=== PATIENT | male | born 1955 | race African-American/Black ===

== ENCOUNTER 2022-02-04 14:34 | Inpatient (IN) | payer OTHER ==
[2022-02-04 16:10] VITALS: BMI 22.1
[2022-02-04] MEDS ORDERED: BISMUTH SUBSALICYLATE 524 MG/30 ML PO PRN (18:12)
[2022-02-04] MEDS ORDERED: NICOTINE 10 MG CARTRIDGE (INHALER) IH PRN (18:12)
[2022-02-04] MEDS ORDERED: MAGNESIUM CITRATE 300 ML BOTTLE PO PRN (18:12)
[2022-02-04] MEDS ORDERED: LOPERAMIDE HCL 2 MG CAPSULE PO PRN (18:12)
[2022-02-04] MEDS ORDERED: MAGNESIUM HYDROX 2400MG/30ML ORAL SUSPENSION 30 ML CUP PO PRN (18:12)
[2022-02-04] MEDS ORDERED: NALOXONE HCL (KLOXXADO) 8 MG SPRAY NS PRN (18:12)
[2022-02-04] MEDS ORDERED: ONDANSETRON *ODT* 4 MG TABLET SL PRN (18:12)
[2022-02-04] MEDS ORDERED: METHOCARBAMOL 500 MG TABLET PO PRN (18:12)
[2022-02-04] MEDS ORDERED: MAG HYDROX/AL HYDROX/SIMETH 30 ML UNIT-DOSE CUP PO PRN (18:12)
[2022-02-04] MEDS ORDERED: IBUPROFEN 400 MG TABLET (FP) PO PRN (18:12)
[2022-02-04] MEDS ORDERED: BENZOCAINE/MENTHOL (CHLORASEPTIC ) LOZENGE MM PRN (18:12)
[2022-02-04] MEDS ORDERED: DICYCLOMINE HCL 10 MG CAPSULE PO PRN (18:12)
[2022-02-04] MEDS ORDERED: ACETAMINOPHEN 325 MG TABLET (FP) PO PRN ×2 (18:12)
[2022-02-04] MEDS: PRENATAL VITAMINS W/ FOLIC ACID TABLET (FP) PO SCH (19:36)
[2022-02-04] MEDS: HYDROCHLOROTHIAZIDE 25 MG TABLET (FP) PO SCH (19:36)
[2022-02-04] MEDS: MELATONIN 5 MG TABLETS PO SCH (22:04)
[2022-02-04] MEDS: THIAMINE HCL 100 MG TABLET (FP) PO SCH (22:04)
[2022-02-04] MEDS: NIFEdipine E.R. 90 MG TABLET PO SCH (22:04)
[2022-02-04] MEDS: AMITRIPTYLINE HCL 25 MG TABLET PO SCH (22:05)
[2022-02-04] MEDS: hydrOXYzine PAMOATE 25 MG CAPSULE (FP) PO SCH (22:05)
[2022-02-04] MEDS: diazePAM 5 MG TABLET PO SCH (22:07)
[2022-02-05] MEDS: hydrOXYzine PAMOATE 25 MG CAPSULE (FP) PO SCH ×5 (05:45→22:48)
[2022-02-05] MEDS: diazePAM 5 MG TABLET PO SCH ×2 (05:45→10:32)
[2022-02-05] MEDS: NIFEdipine E.R. 90 MG TABLET PO SCH (10:32)
[2022-02-05] MEDS: PRENATAL VITAMINS W/ FOLIC ACID TABLET (FP) PO SCH (10:32)
[2022-02-05] MEDS: HYDROCHLOROTHIAZIDE 25 MG TABLET (FP) PO SCH (10:32)
[2022-02-05 12:40] LABS: HEMATOCRIT 35.5 % (35.4-49); HEMOGLOBIN 11.4 GM/dL (11.7-16.9); MCH 30.9 pg (25.7-33.7); MCHC 32.1 g/dl (32.0-35.9); MEAN CELL VOLUME 96.3 fl (80-96); MEAN PLT VOLUME 8.9 fl (7.5-11.1); PLATELET COUNT 156 10^3/uL (134-434); RBC 3.69 M/mm3 (4.00-5.60); RDW 13.3 % (11.9-15.9); WHITE BLOOD COUNT 3.8 K/mm3 (4.0-10.0)
[2022-02-05 13:10] LABS: ALBUMIN 3.2 g/dl (3.4-5.0); BLOOD UREA NITROGEN 42.1 mg/dL (7-18); CALCIUM 8.9 mg/dL (8.5-10.1)
[2022-02-05 13:13] LABS: BILIRUBIN,TOTAL 0.4 mg/dL (0.2-1); CREATININE 1.5 mg/dL (0.55-1.3); TOT PROT 6.5 g/dl (6.4-8.2)
[2022-02-05] MEDS ORDERED: LORazepam 0.5 MG TABLET PO PRN (15:37)
[2022-02-05] MEDS: LORazepam 0.5 MG TABLET PO SCH ×2 (17:34→22:45)
[2022-02-05] MEDS: AMITRIPTYLINE HCL 25 MG TABLET PO SCH (22:45)
[2022-02-05] MEDS: THIAMINE HCL 100 MG TABLET (FP) PO SCH (22:45)
[2022-02-05] MEDS: MELATONIN 5 MG TABLETS PO SCH (22:47)
[2022-02-06] MEDS: hydrOXYzine PAMOATE 25 MG CAPSULE (FP) PO SCH (05:49)
[2022-02-06] MEDS: LORazepam 0.5 MG TABLET PO SCH ×3 (05:49→22:18)
[2022-02-06] MEDS ORDERED: diazePAM 5 MG TABLET PO SCH (06:00)
[2022-02-06 10:05] LABS: BLOOD UREA NITROGEN 30.1 mg/dL (7-18); CREATININE 1.1 mg/dL (0.55-1.3)
[2022-02-06] MEDS: HYDROCHLOROTHIAZIDE 25 MG TABLET (FP) PO SCH (10:21)
[2022-02-06] MEDS: NIFEdipine E.R. 90 MG TABLET PO SCH (10:21)
[2022-02-06] MEDS: PRENATAL VITAMINS W/ FOLIC ACID TABLET (FP) PO SCH (10:21)
[2022-02-06] MEDS: IBUPROFEN 600 MG TABLET (FP) PO PRN ×2 (10:41→22:19)
[2022-02-06] MEDS: THIAMINE HCL 100 MG TABLET (FP) PO SCH (22:17)
[2022-02-06] MEDS: AMITRIPTYLINE HCL 25 MG TABLET PO SCH (22:18)
[2022-02-06] MEDS: MELATONIN 5 MG TABLETS PO SCH (22:18)
[2022-02-07] MEDS: LORazepam 0.5 MG TABLET PO SCH ×2 (05:36→18:11)
[2022-02-07] MEDS ORDERED: diazePAM 5 MG TABLET PO SCH (06:00)
[2022-02-07] MEDS: PRENATAL VITAMINS W/ FOLIC ACID TABLET (FP) PO SCH (10:09)
[2022-02-07] MEDS: HYDROCHLOROTHIAZIDE 25 MG TABLET (FP) PO SCH (10:09)
[2022-02-07] MEDS: NIFEdipine E.R. 90 MG TABLET PO SCH (10:09)
[2022-02-07] MEDS: IBUPROFEN 600 MG TABLET (FP) PO PRN ×2 (10:09→18:12)
[2022-02-07 14:33] VITALS: RESP 18
[2022-02-07] MEDS: THIAMINE HCL 100 MG TABLET (FP) PO SCH (22:11)
[2022-02-07] MEDS: AMITRIPTYLINE HCL 25 MG TABLET PO SCH (22:11)
[2022-02-07] MEDS: MELATONIN 5 MG TABLETS PO SCH (22:12)
[2022-02-08] MEDS ORDERED: LORazepam 0.5 MG TABLET PO ONE (06:00)
[2022-02-08] MEDS ORDERED: diazePAM 5 MG TABLET PO ONE (06:00)
[2022-02-08] MEDS: PRENATAL VITAMINS W/ FOLIC ACID TABLET (FP) PO SCH (10:28)
[2022-02-08] MEDS: NIFEdipine E.R. 90 MG TABLET PO SCH (10:29)
[2022-02-08] MEDS: HYDROCHLOROTHIAZIDE 25 MG TABLET (FP) PO SCH (10:29)
[2022-02-08] MEDS: IBUPROFEN 600 MG TABLET (FP) PO PRN (10:29)
[2022-02-08 13:32] VITALS: BP 138/89; PULSE 78; TEMP 97.3
== END 2022-02-08 14:15 | disposition other institution (70) | DRG 897 ==
LOC: YASAS 14:34 → SUATTDRO 14:34 → Y6N 18:31
PROVIDERS: ADMIT Allergy & Immunology; ATTEND Surgery
PROC: HZ2ZZZZ Detoxification Services for Substance Abuse Treatment (ICD-10-PCS; principal; 2022-02-04)
DX: F10.230 Alcohol dependence with withdrawal, uncomplicated (principal); F14.20 Cocaine dependence, uncomplicated; F17.210 Nicotine dependence, cigarettes, uncomplicated; F32.A Depression, unspecified; E78.5 Hyperlipidemia, unspecified; I10 Essential (primary) hypertension; J44.9 Chronic obstructive pulmonary disease, unspecified; K21.9 Gastro-esophageal reflux disease without esophagitis; Z88.8 Allergy status to other drugs, medicaments and biological substances
CPT/HCPCS: 36415; 80053; 82565; 82962; 84450; 84520; 85027; 86780; 87811; C9803-CS; U0003; U0005

== ENCOUNTER 2022-02-08 14:25 | Inpatient (IN) | payer OTHER ==
[2022-02-08] MEDS ORDERED: NICOTINE 7 MG/24 HOURS TOPICAL PATCH TD PRN (14:51)
[2022-02-08] MEDS ORDERED: LOPERAMIDE HCL 2 MG CAPSULE PO PRN (14:51)
[2022-02-08] MEDS ORDERED: ACETAMINOPHEN 325 MG TABLET (FP) PO PRN (14:51)
[2022-02-08] MEDS ORDERED: NICOTINE POLACRILEX 2 MG GUM BC PRN (14:51)
[2022-02-08] MEDS ORDERED: MAGNESIUM HYDROX 2400MG/30ML ORAL SUSPENSION 30 ML CUP PO PRN (14:51)
[2022-02-08] MEDS ORDERED: MAGNESIUM CITRATE 300 ML BOTTLE PO PRN (14:51)
[2022-02-08] MEDS ORDERED: guaiFENesin 200 MG/10 ML 10 ML UNIT-DOSE CUPS PO PRN (14:51)
[2022-02-08] MEDS ORDERED: NICOTINE 10 MG CARTRIDGE (INHALER) IH PRN (14:51)
[2022-02-08] MEDS ORDERED: MAG HYDROX/AL HYDROX/SIMETH 30 ML UNIT-DOSE CUP PO PRN (14:51)
[2022-02-08] MEDS: IBUPROFEN 400 MG TABLET (FP) PO PRN (18:42)
[2022-02-08] MEDS: THIAMINE HCL 100 MG TABLET (FP) PO SCH (21:09)
[2022-02-08] MEDS: AMITRIPTYLINE HCL 25 MG TABLET PO SCH (21:09)
[2022-02-08] MEDS ORDERED: MELATONIN 5 MG TABLETS PO SCH (22:00)
[2022-02-09] MEDS: PRENATAL VITAMINS W/ FOLIC ACID TABLET (FP) PO SCH (10:09)
[2022-02-09] MEDS: NIFEdipine E.R. 90 MG TABLET PO SCH (10:09)
[2022-02-09] MEDS: HYDROCHLOROTHIAZIDE 25 MG TABLET (FP) PO SCH (10:09)
[2022-02-09] MEDS: IBUPROFEN 400 MG TABLET (FP) PO PRN ×2 (10:11→21:54)
[2022-02-09] MEDS: AMITRIPTYLINE HCL 25 MG TABLET PO SCH (21:52)
[2022-02-09] MEDS: THIAMINE HCL 100 MG TABLET (FP) PO SCH (21:53)
[2022-02-10] MEDS: HYDROCHLOROTHIAZIDE 25 MG TABLET (FP) PO SCH (09:42)
[2022-02-10] MEDS: NIFEdipine E.R. 90 MG TABLET PO SCH (09:42)
[2022-02-10] MEDS: PRENATAL VITAMINS W/ FOLIC ACID TABLET (FP) PO SCH (09:42)
[2022-02-10] MEDS: THIAMINE HCL 100 MG TABLET (FP) PO SCH (21:38)
[2022-02-10] MEDS: AMITRIPTYLINE HCL 25 MG TABLET PO SCH (21:38)
[2022-02-10] MEDS: MELATONIN 5 MG TABLETS PO PRN (23:01)
[2022-02-11] MEDS: IBUPROFEN 400 MG TABLET (FP) PO PRN (09:13)
[2022-02-11] MEDS: NIFEdipine E.R. 90 MG TABLET PO SCH (09:14)
[2022-02-11] MEDS: HYDROCHLOROTHIAZIDE 25 MG TABLET (FP) PO SCH (09:14)
[2022-02-11] MEDS: PRENATAL VITAMINS W/ FOLIC ACID TABLET (FP) PO SCH (09:14)
[2022-02-11] MEDS: MELATONIN 5 MG TABLETS PO PRN (21:06)
[2022-02-11] MEDS: AMITRIPTYLINE HCL 25 MG TABLET PO SCH (21:06)
[2022-02-11] MEDS: THIAMINE HCL 100 MG TABLET (FP) PO SCH (21:06)
[2022-02-12] MEDS: HYDROCHLOROTHIAZIDE 25 MG TABLET (FP) PO SCH (09:57)
[2022-02-12] MEDS: NIFEdipine E.R. 90 MG TABLET PO SCH (09:57)
[2022-02-12] MEDS: PRENATAL VITAMINS W/ FOLIC ACID TABLET (FP) PO SCH (09:57)
[2022-02-12] MEDS: IBUPROFEN 400 MG TABLET (FP) PO PRN (15:50)
[2022-02-12 17:11] LABS: HIV INTERPRETATION NEGATIVE (NEGATIVE)
[2022-02-12] MEDS: AMITRIPTYLINE HCL 25 MG TABLET PO SCH (21:16)
[2022-02-12] MEDS: THIAMINE HCL 100 MG TABLET (FP) PO SCH (21:16)
[2022-02-12] MEDS: MELATONIN 5 MG TABLETS PO PRN (21:16)
[2022-02-13] MEDS: NIFEdipine E.R. 90 MG TABLET PO SCH (10:38)
[2022-02-13] MEDS: PRENATAL VITAMINS W/ FOLIC ACID TABLET (FP) PO SCH (10:38)
[2022-02-13] MEDS: HYDROCHLOROTHIAZIDE 25 MG TABLET (FP) PO SCH (10:38)
[2022-02-13] MEDS: MELATONIN 5 MG TABLETS PO PRN (21:03)
[2022-02-13] MEDS: AMITRIPTYLINE HCL 25 MG TABLET PO SCH (21:03)
[2022-02-13] MEDS: THIAMINE HCL 100 MG TABLET (FP) PO SCH (21:03)
[2022-02-14] MEDS: PRENATAL VITAMINS W/ FOLIC ACID TABLET (FP) PO SCH (10:40)
[2022-02-14] MEDS: HYDROCHLOROTHIAZIDE 25 MG TABLET (FP) PO SCH (10:41)
[2022-02-14] MEDS: NIFEdipine E.R. 90 MG TABLET PO SCH (10:41)
[2022-02-14] MEDS: MELATONIN 5 MG TABLETS PO PRN (21:37)
[2022-02-14] MEDS: THIAMINE HCL 100 MG TABLET (FP) PO SCH (21:37)
[2022-02-14] MEDS: AMITRIPTYLINE HCL 25 MG TABLET PO SCH (23:53)
[2022-02-15] MEDS: IBUPROFEN 400 MG TABLET (FP) PO PRN (10:23)
[2022-02-15] MEDS: PRENATAL VITAMINS W/ FOLIC ACID TABLET (FP) PO SCH (10:24)
[2022-02-15] MEDS: HYDROCHLOROTHIAZIDE 25 MG TABLET (FP) PO SCH (10:24)
[2022-02-15] MEDS: NIFEdipine E.R. 90 MG TABLET PO SCH (10:24)
[2022-02-15] MEDS: MELATONIN 5 MG TABLETS PO PRN (21:07)
[2022-02-15] MEDS: hydrOXYzine PAMOATE 25 MG CAPSULE (FP) PO PRN (21:07)
[2022-02-15] MEDS: THIAMINE HCL 100 MG TABLET (FP) PO SCH (21:07)
[2022-02-15] MEDS: AMITRIPTYLINE HCL 25 MG TABLET PO SCH (21:08)
[2022-02-16] MEDS: NIFEdipine E.R. 90 MG TABLET PO SCH (10:32)
[2022-02-16] MEDS: HYDROCHLOROTHIAZIDE 25 MG TABLET (FP) PO SCH (10:32)
[2022-02-16] MEDS: PRENATAL VITAMINS W/ FOLIC ACID TABLET (FP) PO SCH (10:32)
[2022-02-16] MEDS: THIAMINE HCL 100 MG TABLET (FP) PO SCH (21:04)
[2022-02-16] MEDS: AMITRIPTYLINE HCL 25 MG TABLET PO SCH (21:04)
[2022-02-16] MEDS: MELATONIN 5 MG TABLETS PO PRN (21:04)
[2022-02-16] MEDS: METHOCARBAMOL 500 MG TABLET PO SCH (21:04)
[2022-02-17] MEDS: NIFEdipine E.R. 90 MG TABLET PO SCH (10:09)
[2022-02-17] MEDS: PRENATAL VITAMINS W/ FOLIC ACID TABLET (FP) PO SCH (10:09)
[2022-02-17] MEDS: HYDROCHLOROTHIAZIDE 25 MG TABLET (FP) PO SCH (10:09)
[2022-02-17] MEDS: METHOCARBAMOL 500 MG TABLET PO SCH (10:10)
[2022-02-17] MEDS ORDERED: ALBUTEROL SO4 HFA INHALER IH PRN (15:20)
[2022-02-17] MEDS: THIAMINE HCL 100 MG TABLET (FP) PO SCH (21:06)
[2022-02-17] MEDS: MELATONIN 5 MG TABLETS PO PRN (21:06)
[2022-02-17] MEDS: BUDESONIDE/FORMETEROL FUMARATE 160/4.5 mcg INHALER IH SCH (21:07)
[2022-02-17] MEDS: ATORVASTATIN CA 40 MG TABLET (FP) PO SCH (21:07)
[2022-02-17] MEDS: APIXABAN 5 MG TABLET PO SCH (21:08)
[2022-02-17] MEDS: hydrOXYzine PAMOATE 25 MG CAPSULE (FP) PO PRN (21:08)
[2022-02-18] MEDS: EMPAGLIFLOZIN (NF) 10 MG TABLET PO SCH (06:35)
[2022-02-18] MEDS: IBUPROFEN 400 MG TABLET (FP) PO PRN (10:10)
[2022-02-18] MEDS: PRENATAL VITAMINS W/ FOLIC ACID TABLET (FP) PO SCH (10:10)
[2022-02-18] MEDS: APIXABAN 5 MG TABLET PO SCH ×2 (10:10→21:09)
[2022-02-18] MEDS: BUDESONIDE/FORMETEROL FUMARATE 160/4.5 mcg INHALER IH SCH ×2 (10:11→21:10)
[2022-02-18] MEDS: PANTOPRAZOLE 40 MG TABLET PO SCH (10:11)
[2022-02-18] MEDS: amLODIPine BESYLATE 10 MG TABLET (FP) PO SCH (10:11)
[2022-02-18] MEDS: LOSARTAN POTASSIUM 50 MG TABLET PO SCH (10:11)
[2022-02-18] MEDS: GABAPENTIN 400 MG CAPSULE PO SCH (10:11)
[2022-02-18] MEDS: MELATONIN 5 MG TABLETS PO PRN (21:08)
[2022-02-18] MEDS: THIAMINE HCL 100 MG TABLET (FP) PO SCH (21:08)
[2022-02-18] MEDS: ATORVASTATIN CA 40 MG TABLET (FP) PO SCH (21:09)
[2022-02-19] MEDS: EMPAGLIFLOZIN (NF) 10 MG TABLET PO SCH (06:35)
[2022-02-19] MEDS: BUDESONIDE/FORMETEROL FUMARATE 160/4.5 mcg INHALER IH SCH ×2 (09:34→21:22)
[2022-02-19] MEDS: LOSARTAN POTASSIUM 50 MG TABLET PO SCH (09:34)
[2022-02-19] MEDS: APIXABAN 5 MG TABLET PO SCH ×2 (09:34→21:22)
[2022-02-19] MEDS: amLODIPine BESYLATE 10 MG TABLET (FP) PO SCH (09:35)
[2022-02-19] MEDS: PRENATAL VITAMINS W/ FOLIC ACID TABLET (FP) PO SCH (09:35)
[2022-02-19] MEDS: PANTOPRAZOLE 40 MG TABLET PO SCH (09:35)
[2022-02-19] MEDS: GABAPENTIN 400 MG CAPSULE PO SCH (09:35)
[2022-02-19] MEDS: MELATONIN 5 MG TABLETS PO PRN (21:22)
[2022-02-19] MEDS: THIAMINE HCL 100 MG TABLET (FP) PO SCH (21:22)
[2022-02-19] MEDS: ATORVASTATIN CA 40 MG TABLET (FP) PO SCH (21:22)
[2022-02-20] MEDS: EMPAGLIFLOZIN (NF) 10 MG TABLET PO SCH (06:10)
[2022-02-20] MEDS: PRENATAL VITAMINS W/ FOLIC ACID TABLET (FP) PO SCH (10:15)
[2022-02-20] MEDS: PANTOPRAZOLE 40 MG TABLET PO SCH (10:16)
[2022-02-20] MEDS: BUDESONIDE/FORMETEROL FUMARATE 160/4.5 mcg INHALER IH SCH ×2 (10:16→21:32)
[2022-02-20] MEDS: APIXABAN 5 MG TABLET PO SCH ×2 (10:16→21:32)
[2022-02-20] MEDS: amLODIPine BESYLATE 10 MG TABLET (FP) PO SCH (10:16)
[2022-02-20] MEDS: LOSARTAN POTASSIUM 50 MG TABLET PO SCH (10:16)
[2022-02-20] MEDS: GABAPENTIN 400 MG CAPSULE PO SCH (10:16)
[2022-02-20] MEDS: IBUPROFEN 400 MG TABLET (FP) PO PRN (13:38)
[2022-02-20] MEDS: ATORVASTATIN CA 40 MG TABLET (FP) PO SCH (21:32)
[2022-02-20] MEDS: THIAMINE HCL 100 MG TABLET (FP) PO SCH (21:32)
[2022-02-20] MEDS: MELATONIN 5 MG TABLETS PO PRN (21:32)
[2022-02-21] MEDS: EMPAGLIFLOZIN (NF) 10 MG TABLET PO SCH (06:32)
[2022-02-21] MEDS: PANTOPRAZOLE 40 MG TABLET PO SCH (09:39)
[2022-02-21] MEDS: APIXABAN 5 MG TABLET PO SCH ×2 (09:39→21:23)
[2022-02-21] MEDS: BUDESONIDE/FORMETEROL FUMARATE 160/4.5 mcg INHALER IH SCH ×2 (09:39→21:24)
[2022-02-21] MEDS: GABAPENTIN 400 MG CAPSULE PO SCH (09:39)
[2022-02-21] MEDS: LOSARTAN POTASSIUM 50 MG TABLET PO SCH (09:39)
[2022-02-21] MEDS: amLODIPine BESYLATE 10 MG TABLET (FP) PO SCH (09:39)
[2022-02-21] MEDS: PRENATAL VITAMINS W/ FOLIC ACID TABLET (FP) PO SCH (09:39)
[2022-02-21] MEDS: IBUPROFEN 400 MG TABLET (FP) PO PRN (15:47)
[2022-02-21] MEDS: MELATONIN 5 MG TABLETS PO PRN (21:23)
[2022-02-21] MEDS: THIAMINE HCL 100 MG TABLET (FP) PO SCH (21:23)
[2022-02-21] MEDS: ATORVASTATIN CA 40 MG TABLET (FP) PO SCH (21:23)
[2022-02-22] MEDS: EMPAGLIFLOZIN (NF) 10 MG TABLET PO SCH (06:01)
[2022-02-22] MEDS: hydrOXYzine PAMOATE 25 MG CAPSULE (FP) PO PRN (06:23)
[2022-02-22] MEDS: PRENATAL VITAMINS W/ FOLIC ACID TABLET (FP) PO SCH (10:31)
[2022-02-22] MEDS: amLODIPine BESYLATE 10 MG TABLET (FP) PO SCH (10:31)
[2022-02-22] MEDS: APIXABAN 5 MG TABLET PO SCH ×2 (10:31→21:12)
[2022-02-22] MEDS: LOSARTAN POTASSIUM 50 MG TABLET PO SCH (10:31)
[2022-02-22] MEDS: GABAPENTIN 400 MG CAPSULE PO SCH (10:31)
[2022-02-22] MEDS: PANTOPRAZOLE 40 MG TABLET PO SCH (10:32)
[2022-02-22] MEDS: BUDESONIDE/FORMETEROL FUMARATE 160/4.5 mcg INHALER IH SCH ×2 (10:32→21:12)
[2022-02-22] MEDS: IBUPROFEN 400 MG TABLET (FP) PO PRN (14:56)
[2022-02-22] MEDS: ATORVASTATIN CA 40 MG TABLET (FP) PO SCH (21:12)
[2022-02-22] MEDS: MELATONIN 5 MG TABLETS PO PRN (21:12)
[2022-02-22] MEDS: THIAMINE HCL 100 MG TABLET (FP) PO SCH (21:12)
[2022-02-23] MEDS: EMPAGLIFLOZIN (NF) 10 MG TABLET PO SCH ×2 (05:49→07:04)
[2022-02-23] MEDS: hydrOXYzine PAMOATE 25 MG CAPSULE (FP) PO PRN (05:49)
[2022-02-23] MEDS: BUDESONIDE/FORMETEROL FUMARATE 160/4.5 mcg INHALER IH SCH ×2 (10:01→21:14)
[2022-02-23] MEDS: PRENATAL VITAMINS W/ FOLIC ACID TABLET (FP) PO SCH (10:01)
[2022-02-23] MEDS: APIXABAN 5 MG TABLET PO SCH ×2 (10:02→21:14)
[2022-02-23] MEDS: GABAPENTIN 400 MG CAPSULE PO SCH (10:02)
[2022-02-23] MEDS: PANTOPRAZOLE 40 MG TABLET PO SCH (10:02)
[2022-02-23] MEDS: amLODIPine BESYLATE 10 MG TABLET (FP) PO SCH (10:02)
[2022-02-23] MEDS: LOSARTAN POTASSIUM 50 MG TABLET PO SCH (10:02)
[2022-02-23] MEDS: METHOCARBAMOL 500 MG TABLET PO PRN (21:14)
[2022-02-23] MEDS: THIAMINE HCL 100 MG TABLET (FP) PO SCH (21:14)
[2022-02-23] MEDS: MELATONIN 5 MG TABLETS PO PRN (21:14)
[2022-02-23] MEDS: ATORVASTATIN CA 40 MG TABLET (FP) PO SCH (21:14)
[2022-02-24] MEDS: EMPAGLIFLOZIN (NF) 10 MG TABLET PO SCH (06:13)
[2022-02-24] MEDS: hydrOXYzine PAMOATE 25 MG CAPSULE (FP) PO PRN (06:13)
[2022-02-24] MEDS: METHOCARBAMOL 500 MG TABLET PO PRN (06:13)
[2022-02-24 06:29] VITALS: TEMP 96.2
[2022-02-24 09:02] VITALS: BP 145/89; PULSE 69; RESP 18
[2022-02-24] MEDS: PRENATAL VITAMINS W/ FOLIC ACID TABLET (FP) PO SCH (09:11)
[2022-02-24] MEDS: amLODIPine BESYLATE 10 MG TABLET (FP) PO SCH (09:11)
[2022-02-24] MEDS: APIXABAN 5 MG TABLET PO SCH (09:11)
[2022-02-24] MEDS: LOSARTAN POTASSIUM 50 MG TABLET PO SCH (09:11)
[2022-02-24] MEDS: GABAPENTIN 400 MG CAPSULE PO SCH (09:11)
[2022-02-24] MEDS: PANTOPRAZOLE 40 MG TABLET PO SCH (09:11)
[2022-02-24] MEDS: BUDESONIDE/FORMETEROL FUMARATE 160/4.5 mcg INHALER IH SCH (09:12)
== END 2022-02-24 09:20 | disposition home or self-care (01) | DRG 895 ==
LOC: YASAS 14:25 → Y3W 14:27
PROVIDERS: ADMIT Allergy & Immunology; ATTEND Psychiatry & Neurology Pain Medicine
PROC: HZ42ZZZ Group Counseling for Substance Abuse Treatment, Cognitive-Behavioral (ICD-10-PCS; principal; 2022-02-08)
DX: F10.20 Alcohol dependence, uncomplicated (principal); F32.A Depression, unspecified; I10 Essential (primary) hypertension; E78.5 Hyperlipidemia, unspecified; J44.9 Chronic obstructive pulmonary disease, unspecified; K21.9 Gastro-esophageal reflux disease without esophagitis; Z72.0 Tobacco use
CPT/HCPCS: 36415; 71046-TC-FY; 82962; 87389